=== PATIENT | female | born 1975 | race Caucasian/White ===

== ENCOUNTER 2019-05-06 19:54 | Emergency (ER) | payer OTHER ==
[~2019-05-06] VITALS: Ht 160 cm; Wt 165.6 kg
[~2019-05-06 19:54] MED LIST: ACET-8386 PO; COZ50 PO; FERR325E14 PO; METF500T PO; ORE25 PO; OXYC1TAB PO; SULF-59 PO
[2019-05-06 20:14] VITALS: BP 173/119
--- NOTE | 2019-05-06 20:15 | NUR ---
ER MADE AWARE OF PT STATUS. SENT TO LOBBY AWATING BED IN ED.
--- NOTE | 2019-05-06 20:51 | NUR ---
PT AMBULATED TO BED 12
--- NOTE | 2019-05-06 20:52 | NUR ---
PT CAME IN TO ER WITH C/O HIGH BLOOD PRESSURE. PT WAS IN URGENT CARE FOR A COUGH, AND TOLD HER TO COME TO ER FOR FURTHER EVALUATION DUE TO HER HIGH BP. PT IS A/OX4 ER MD MADE CASTANO OF STATUS. SAFETY MEASURES IN PLACE. CONTINUE TO MONITOR.
[2019-05-06] MEDS ORDERED: cloNIDine 0.1 MG TAB PO ONE (21:15)
[2019-05-06] MEDS ORDERED: hydrALAZINE 20 MG/ML VIAL IM ONE ×2 (21:55→23:00)
--- NOTE | 2019-05-06 23:14 | NUR ---
PT SLEEPING. NO SIGNS OF RESP DISTRESS. NO PAIN REPORTED. 0/10 PAIN. SON AT BEDSIDE. WILL CONTINUE TO MONITOR.
[2019-05-07 00:35] VITALS: BP 121/82
--- NOTE | 2019-05-07 00:35 | NUR ---
DISCHARGE PAPERS GIVEN TO PT. BP DECREASED 121/82 WITH HR OF 82. 0/10 PAIN. PT STATES FEELING RELEIF. RX OF HYDRALAZINE GIVEN. SIDE EFFECTS EXPLAINED. INSTRUCTED TO F/U WITH PCP AND WHEN TO RETURN TO ER. PT VERBALLIZED UNDERSTANDING OF DC INSTRCUTIONS. ALL QUESTIONS ANSWERED.
== END 2019-05-07 00:35 | disposition home or self-care (01) ==
LOC: MED 19:54
DX: I10 Essential (primary) hypertension (principal); J45.909 Unspecified asthma, uncomplicated; E11.9 Type 2 diabetes mellitus without complications; Z79.84 Long term (current) use of oral hypoglycemic drugs; Z79.899 Other long term (current) drug therapy
CPT/HCPCS: 96372; 99283; J0360

== ENCOUNTER 2022-02-24 14:22 | Emergency (ER) | payer OTHER ==
[~2022-02-24] VITALS: Ht 160 cm; Wt 150.6 kg
[~2022-02-24 14:22] MED LIST changes: -COZ50 PO; +HYDR-4004 PO; +LOSA50TA57 PO; +METF-564 PO; -METF500T PO; -ORE25 PO
[2022-02-24 14:48] VITALS: BP 182/107
--- NOTE | 2022-02-24 14:50 | NUR ---
46 Y/O FEMALE BIB SELF C/O UPPER ABDOMINAL PAIN X3WKS. PAIN IS SHARP AND CONSTANTRATED 5/10. PT STATES PAIN RADIATES TO LOWER ABDOMEM. PT TOOK MOTRIN WITH NO PAIN IMPROVEMENT. PT DENIES N/V/, FEVER, CHILLS. PT DENIES SOB, CHEST PAIN. PMH: HTN, DM NKA
--- NOTE | 2022-02-24 14:55 | NUR ---
PATIENT AMBULATED TO BED 7.
[2022-02-24] MEDS ORDERED: KETOROLAC 30 MG/ML VIAL IVP ONE (15:10)
[2022-02-24 15:31] LABS: BASOPHILS % (AUTO) 0.3 % (0.0-2.0); EOSINOPHILS # (AUTO) 0.3 K/uL (0-0.4); EOSINOPHILS % (AUTO) 2.5 % (0.0-4.0); HEMATOCRIT 42.7 % (36-48); HEMOGLOBIN 13.9 g/dL (12.0-16.0); LYMPHOCYTES # (AUTO) 1.7 K/uL (2.5-16.5); LYMPHOCYTES % (AUTO) 16.7 % (20.5-51.1); MEAN CORPUSCULAR HEMOGLOBIN 28 pg (27-31); MEAN CORPUSCULAR HGB CONC 33 g/dL (33-37); MEAN CORPUSCULAR VOLUME 85.2 fL (80-94); MONOCYTES # (AUTO) 0.8 K/uL (0.8-1.0); MONOCYTES % (AUTO) 7.4 % (1.7-9.3); NEUTROPHILS # (AUTO) 7.6 K/uL (1.8-7.7); NEUTROPHILS % (AUTO) 73.1 % (42.2-75.2); PLATELET COUNT (AUTO) 304 K/uL (140-450); RED BLOOD CELL COUNT(AUTO) 5.01 MIL/uL (4.20-5.40); RED CELL DISTRIBUTION WIDTH 15.1 % (11.6-13.7); WHITE BLOOD COUNT (AUTO) 10.5 K/uL (4.8-10.8)
[2022-02-24 15:48] LABS: ANION GAP 10.7 (8-16); CARBON DIOXIDE 30.9 mmol/L (21-32); CREATININE 0.8 mg/dL (0.6-1.3); POTASSIUM 3.6 mmol/L (3.5-5.1); TOTAL BILIRUBIN 0.2 mg/dL (0.0-1.0)
[2022-02-24 15:51] LABS: APPEARANCE,URINE HAZY (CLEAR); COLOR,URINE YELLOW (YELLOW)
[2022-02-24 15:52] LABS: BILIRUBIN,URINE NEGATIVE (NEGATIVE); BLOOD, URINE NEGATIVE (NEGATIVE); LEUKOCYTE ESTERASE ,URINE TRACE (NEGATIVE); NITRITE, URINE NEGATIVE (NEGATIVE); UGLUCOSE 2+ (NEGATIVE)
[2022-02-24 15:59] LABS: RBC,URINE NONE SEEN /HPF (0-5)
--- NOTE | 2022-02-24 15:59 | NUR ---
PT TAKEN TO CT VIA WC
[2022-02-24] MEDS ORDERED: IBUP-2213 PO (16:50)
[2022-02-24] MEDS ORDERED: ACET-8386 PO (16:50)
[2022-02-24 17:07] VITALS: BP 182/107
--- NOTE | 2022-02-24 17:10 | NUR ---
Patient discharged with v/s stable. Written and verbal after care instructions given and explained. Patient alert, oriented and verbalized understanding of instructions. Ambulatory with steady gait. All questions addressed prior to discharge. ID band removed. Patient advised to follow up with PMD. Rx of HYDROCODONE/ACETAMINOPHEN given. Patient educated on indication of medication including possible reaction and side effects. Opportunity to ask questions provided and answered.
== END 2022-02-24 17:10 | disposition home or self-care (01) ==
LOC: MED 14:22
DX: R10.12 Left upper quadrant pain (principal); R19.7 Diarrhea, unspecified; E11.9 Type 2 diabetes mellitus without complications; I10 Essential (primary) hypertension; J45.909 Unspecified asthma, uncomplicated; Z98.890 Other specified postprocedural states; Z79.84 Long term (current) use of oral hypoglycemic drugs; Z79.899 Other long term (current) drug therapy
CPT/HCPCS: 36415; 74176; 80053; 81001; 81025; 83690; 85025; 87086; 96374; 99284; J1885

== ENCOUNTER 2022-12-30 13:27 | Emergency (ER) | payer OTHER ==
[~2022-12-30] VITALS: Ht 160 cm; Wt 142.0 kg
[~2022-12-30 13:27] MED LIST changes: -ACET-8386 PO; +ACET-8905 PO; +IBUP-2213 PO; +METF-346 PO; -METF-564 PO
[2022-12-30 13:31] VITALS: BP 166/112
--- NOTE | 2022-12-30 13:40 | NUR ---
Patient ambulated to bed 7 with steady gait.
--- NOTE | 2022-12-30 13:49 | NUR ---
PA Owusu evaluating patient at bedside.
--- NOTE | 2022-12-30 14:00 | NUR ---
47 y/o female bib self with SOB, non-productive cough and stuffy nose x2 weeks. Per patient had 2 Telehealth visits for Urgent Care and was prescribed antibiotic twice with minimal relief. Patient denies any fevers. Patient has chills. Medical History: DM, HTN, Asthma NKDA
--- NOTE | 2022-12-30 14:05 | NUR ---
X-Ray ast bedside.
--- NOTE | 2022-12-30 14:11 | NUR ---
RT at bedside.
[2022-12-30] MEDS: IPRATROPIUM 0.02% 0.5 MG/2.5 ML NEBU INH ONE (14:12)
[2022-12-30] MEDS: ALBUTEROL 0.083% 2.5 MG/3 ML NEBU INH ONE (14:12)
[2022-12-30] MEDS: predniSONE 20 MG TAB PO ONE (14:44)
--- NOTE | 2022-12-30 15:06 | NUR ---
SOPHIA Owusu re-evaluating patient at bedside.
[2022-12-30] MEDS ORDERED: ROBAC PO (15:13)
[2022-12-30] MEDS ORDERED: PRED20TA5 PO (15:13)
[2022-12-30 15:38] VITALS: BP 142/89
--- NOTE | 2022-12-30 15:38 | NUR ---
The patient's care was reviewed and supervised by Jenae Harrell, RN, RN.
--- NOTE | 2022-12-30 15:38 | NUR ---
Patient discharged with v/s stable. Written and verbal after care instructions given. Patient alert, oriented and verbalized understanding of instructions. Ambulatory with steady gait. All questions addressed prior to discharge. ID band removed. Patient advised to follow up with PMD. Rx of Deltasone and Guaifenesin-Codeine Syrup given. Opportunity to ask questions provided and answered.
== END 2022-12-30 15:38 | disposition home or self-care (01) ==
LOC: MED 13:27
DX: J20.9 Acute bronchitis, unspecified (principal); J45.909 Unspecified asthma, uncomplicated; E11.9 Type 2 diabetes mellitus without complications; I10 Essential (primary) hypertension; Z79.899 Other long term (current) drug therapy
CPT/HCPCS: 71045; 94640; 99285; J7512; J7613; J7644; Q0092